=== PATIENT | female | born 1985 | race Caucasian/White ===

== ENCOUNTER 2022-03-12 10:29 | Emergency (ER) | payer OTHER, SELFPAY ==
--- NOTE | 2022-03-12 10:31 | ED.FEMALEGU ---
HPI - Female Genitourinary General Chief complaint: Urogenital-Female Stated complaint: vaginal discharge Time Seen by Provider: 03/12/22 10:31 Source: patient Mode of arrival: ambulatory Limitations: no limitations History of Present Illness HPI Narrative: Ms. Castro is a patient presenting to the clinic today with complaints of vaginal discharge x5 days. States she went on a trip to [place] and the [facility] and on her way home she started with some lower abdominal cramping with yellowish vaginal discharge. When she returned home she had intercourse with her and she noted some blood in her discharge and reports she was having more discomfort after intercourse was painful. She denies any foul odor. She has tried douching to see if this will help alleviate the vaginal discharge and it had not. She denies any fever or chills. She denies any back pain or urinary symptoms. History of a tubal ligation Related Data Home Medications Medication Instructions Recorded Confirmed cholecalciferol (vitamin D3) 100 100 mcg PO DAILY 03/12/22 03/12/22 mcg (4,000 unit) capsule levocetirizine 5 mg tablet (Xyzal) 5 mg PO DAILY 03/12/22 03/12/22 sertraline 50 mg tablet 75 mg DAILY 03/12/22 03/12/22 Allergies Allergy/AdvReac Type Severity Reaction Status Date / Time ibuprofen Allergy Swelling Verified 03/12/22 11:02 Review of Systems Review of Systems: Pertinent positives per HPI. Patient denies any fever, chills, rash, headache, visual changes, dizziness, cough, runny nose, sore throat, shortness of breath, chest pain, palpitations, nausea, vomiting, diarrhea, constipation, abdominal pain, or any urinary issues. PMFSH Comments At the time of my signature, I reviewed and agree with the nursing past medical, surgical, social, and family history. There is no relevant family history pertinent to the patient complaint. Exam Narrative: General: Well-developed, well nourished, in no apparent distress Head: Normocephalic, atraumatic. Cardio: Regular rate and rhythm, s1 and s2 normal, no murmur appreciated. Resp: Clear to auscultation bilaterally, no rhonchi, rales, wheezing or rubs. Abdomen: Soft, pliable, bowel sounds present in all quadrants, non-tender to palpation, no CVAT tenderness. : Pelvic exam performed with (Coco ABERNATHY) at bedside. Verbal consent obtained from patient. Normal external female genitalia without lesions or masses, Urinary meatus: patent without discharge Vagina: No lesions, masses, yellow thick discharge visualized in the pelvic vault Cervix: pink without mass, lesions, or tenderness. Adnexa: without palpable mass, mild tenderness to palpation over the left adnexa Course Course Emergency Course: Portions of this record may have been created with voice recognition software. Level of Care: Express Care Visit Vital Signs Vital signs: Vital signs reviewed MDM - Female Genitourinary MDM Narrative Medical decision making narrative: At the time of visit patient is resting comfortably on the exam table. Pelvic exam was completed and yellow vaginal discharge was swabbed for culture. We will send urinalysis for culture as well as to test for trichomonas, gonorrhea, and chlamydia. I will treat the patient based off her symptoms and symptoms are suspicious for bacterial vaginosis. I will place the patient on a prescription for some MetroGel and have her follow-up with her primary care in 5 to 7 days if symptoms persist. Discussed avoiding intercourse until treatment regimen was completed and the following tests were completed and were negative. She voiced understanding of discharge instructions and agrees to treatment plan. Differential Diagnosis Differential diagnosis: Likely urinary tract infection, bacterial vaginosis, trichomoniasis, cervicitis, vaginitis, cystitis and other (STI) Discharge Plan Discharge Clinical Impression: Vaginal discharge, Bacterial vaginosis Patient Disp
[2022-03-12 10:43] VITALS: BP 111/68; PULSE 79; RESP 18; TEMP 36.7; O2SAT 100
== END 2022-03-12 11:14 | disposition home or self-care (01) ==
PROVIDERS: Emergency Provider Nurse Practitioner Family; PCP Physician Assistant
DX: N76.0 Acute vaginitis (principal); F41.9 Anxiety disorder, unspecified
CPT/HCPCS: 81003; 87070; 87086; 87491; 87591; 87661; 99214; G0463